=== PATIENT | female | born 1945 | race Caucasian/White ===

== ENCOUNTER 2019-07-12 09:19 | Inpatient (IN) ==
--- NOTE | 2019-06-04 15:01 | PAT Medication Instructions ---
Medication Instructions Date of Service June 04, 2019 Home Medications albuterol sulfate 0.63 mg INHALATION QID PRN albuterol sulfate [ProAir HFA] 2 puff INHALATION QID PRN coQ10 (ubiquinol) 100 mg PO QAM cyanocobalamin (vitamin B-12) 1,000 mcg PO QAM diphenhydramine HCl [Benadryl] 25 mg PO Q6H PRN epinephrine [EpiPen] 0.3 mg IM Q3H PRN furosemide 20 mg PO DAILY PRN glucos sul 4LKj-rwy-upidw-C-Mn [Glucosamine Chondroitin] 1 cap PO BID lactobacillus combination no.4 [Probiotic] 3,000 mmu cells PO QAM loratadine [Claritin] 10 mg PO HS oxybutynin chloride 5 mg PO QAM rosuvastatin [Crestor] 10 mg PO HS turmeric root extract 1,000 mg PO BID vit C,I-Vp-rpqzr-lutein-zeaxan [PreserVision AREDS-2] 1 tab PO BID Continue as directed epinephrine [EpiPen] 0.3 mg IM Q3H PRN (if needed) STOP taking 2 weeks before surgery (or as soon as possible if surgery is within 2 weeks) coQ10 (ubiquinol) 100 mg PO QAM glucos sul 1BLt-gwq-wsvbk-C-Mn [Glucosamine Chondroitin] 1 cap PO BID turmeric root extract 1,000 mg PO BID vit C,Y-Md-nfnfy-lutein-zeaxan [PreserVision AREDS-2] 1 tab PO BID DO NOT take the morning of surgery cyanocobalamin (vitamin B-12) 1,000 mcg PO QAM diphenhydramine HCl [Benadryl] 25 mg PO Q6H PRN furosemide 20 mg PO DAILY PRN lactobacillus combination no.4 [Probiotic] 3,000 mmu cells PO QAM oxybutynin chloride 5 mg PO QAM Take morning of surgery With a small sip of water, OTHERWISE NOTHING TO EAT OR DRINK AFTER MIDNIGHT: albuterol sulfate 0.63 mg INHALATION QID PRN (use if needed; please bring with you to hospital day of surgery if possible) albuterol sulfate [ProAir HFA] 2 puff INHALATION QID PRN (if needed) Take evening before surgery albuterol sulfate 0.63 mg INHALATION QID PRN (if needed) albuterol sulfate [ProAir HFA] 2 puff INHALATION QID PRN (if needed) diphenhydramine HCl [Benadryl] 25 mg PO Q6H PRN (if needed) furosemide 20 mg PO DAILY PRN (if needed) loratadine [Claritin] 10 mg PO HS rosuvastatin [Crestor] 10 mg PO HS Other Notes If you have any questions please call us at [phone] or [phone] or [phone] or [phone]
--- NOTE | 2019-06-05 11:44 | Anesthesiology Consultation ---
Date of Service June 05, 2019 Assessment & Plan (1) Encounter for pre-operative examination: Chart Review Chart Review: Acceptable Risk for Surgery and Patient seen in Pre Admission Testing Teaching & Discussion Pre-Anesthesia Teaching/Discussion Notes: Instructed NPO after midnight before surgery,except medications with 15 cc of water. Medication instructions provided according to the PAT guidelines. History Surgery Operation Date: 07/12/19 11:10 Proposed Procedures p Bilateral Total Knee Arthroplasty - Oliver Butler, Height/Weight Height: 5 ft 6 in Weight: 85 kg Allergies Allergy/AdvReac Type Severity Reaction Status Date / Time amoxicillin Allergy Intermediate Rash Verified 06/05/19 10:17 latex Allergy Intermediate Facial Verified 06/05/19 12:06 redness perfume Allergy Intermediate Facial Verified 06/05/19 12:06 redness, headache, "brain fog" cephalexin [From Keflex] Allergy Unknown Unknown Verified 06/05/19 12:06 reaction erythromycin base AdvReac Intermediate GI upset Verified 06/05/19 12:06 minocycline [From Minocin] AdvReac Intermediate worsened Verified 06/05/19 12:06 symptoms nitrofurantoin AdvReac Intermediate worsened Verified 06/05/19 12:06 [From Macrodantin] symptoms sulfamethoxazole AdvReac Intermediate GI upset Verified 06/05/19 12:06 [From Bactrim] trimethoprim [From Bactrim] AdvReac Intermediate GI upset Verified 06/05/19 12:06 Medications Home Medications Medication Instructions Recorded Confirmed Last Taken albuterol sulfate 0.63 mg INHALATION QID PRN 05/28/19 06/05/19 Unknown albuterol sulfate [ProAir HFA] 2 puff INHALATION QID PRN 05/28/19 06/05/19 Unknown coQ10 (ubiquinol) 100 mg PO QAM 05/28/19 06/05/19 Unknown cyanocobalamin (vitamin B-12) 1,000 mcg PO QAM 05/28/19 06/05/19 Unknown diphenhydramine HCl [Benadryl] 25 mg PO Q6H PRN 05/28/19 06/05/19 Unknown epinephrine [EpiPen] 0.3 mg IM Q3H PRN 05/28/19 06/05/19 Unknown furosemide 20 mg PO DAILY PRN 05/28/19 06/05/19 Unknown glucos sul 0OJa-dol-hpbvu-C-Mn 1 cap PO BID 05/28/19 06/05/19 Unknown [Glucosamine Chondroitin] lactobacillus combination no.4 3,000 mmu cells PO QAM 05/28/19 06/05/19 Unknown [Probiotic] loratadine [Claritin] 10 mg PO HS 05/28/19 06/05/19 Unknown oxybutynin chloride 5 mg PO QAM 05/28/19 06/05/19 Unknown rosuvastatin [Crestor] 10 mg PO HS 05/28/19 06/05/19 Unknown turmeric root extract 1,000 mg PO BID 05/28/19 06/05/19 Unknown vit C,M-Yh-tlgty-lutein-zeaxan 1 tab PO BID 05/28/19 06/05/19 Unknown [PreserVision AREDS-2] Past Medical History Medical History Asthma rare inhaler use Hyperlipidemia Osteoarthritis Thyroid nodule X2 (benign) Urinary, incontinence, stress female on oxybutynin Exercise / Class Metabolic Activity II 4-5 Yardwork/Stairs/Walk up hill (one flight of stairs (no chest pain/no sob)) Past Family History Family History Father Family history of diabetes mellitus Past Surgical History Surgical History Hemangioma REMOVED FROM RT LEG ALONG WITH SKIN GRAFTING (AGE 15) History of bilateral tubal ligation History of cholecystectomy History of colonoscopy History of laparoscopy History of tooth extraction Past Anesthesia History No Hx of Anesthesia Complications and No Family Hx of Anesthesia Complications History of PONV No Hx of PONV and Hx of Motion Sickness Social History Smoking Status: Never smoker Do You Dip or Chew Tobacco: No Hx Alcohol Use: No Hx Substance Use: No substance use type: does not use Review of Systems Patient denies chest pain, shortness of breath, dyspnea on exertion, reflux, cough, wheezing, palpitations. Physical Exam Vital Signs VITALS BP 168/77 (recheck: 138/82 on right/manual) P 59 TEMP 97.8 SP02 95%RA RESP 16 PHYSICAL Full neck and c-spine range of motion. Full TMJ range of motion. TMD 3.5 finger breaths Mallampati Score 2 Dentition: partial on upper, several crowns, ? cap on molar Lungs: clear throughout to auscultation Cardiac: regular rate and rhythm, no murmurs noted Spine: normal Carotid arteries: negative bruit Extremities: no edema Testing Laboratory Results 06/05/19 12:05 06/05/19 12:05 PT 10.9 Seconds (9.0-12.0) 06/05/19 12:05 INR 1.1 (0.9-1.1) 06/05/19 12:05 APTT 26.7 Seconds (21.0-31.0) 06/05/19 12:05 Blood Type O Positive 06/05/19 12:05 Antibody Screen NEGATIVE 06/05/19 12:05 Electrocardiogram Date: 06/05/19 SB with first degree AVB at 59bpm. Otherwise "normal" ECG. Chest X-Ray Date: 06/05/19 Findings: + NAD
--- NOTE | 2019-06-05 12:48 | XRay Report ---
XR chest Pre-admission PA/Lat CLINICAL HISTORY: pat preoperative evaluation COMPARISON STUDY: No previous studies for comparison. FINDINGS: The bones soft tissues and hemidiaphragms are normal. The cardiomediastinal silhouette is n ormal. The lungs are clear. The pulmonary vasculature is normal. IMPRESSION: Negative chest. The above report was generated using voice recognition software. It may contain grammatical, syntax or spelling errors. Electronically signed by: Gaurav Robin M.D. 06/05/2019 12:46 PM
[2019-06-05 13:13] LABS: Basophils # (auto) 0.04 K/uL (0-0.2); Basophils % (auto) 0.8 %; Eosinophils # (auto) 0.28 K/uL (0-0.5); Eosinophils % (auto) 5.4 %; Hematocrit (blood only) 41.9 % (37-47); Immature Granulocytes # (auto) 0.01 K/uL (0.00-0.02); Immature Granulocytes % (auto) 0.2 %; Lymphocytes % (auto) 28.8 %; Mean Corpuscular Hemoglobin 31.4 pg (25-34); Mean Corpuscular Hgb Conc 33.4 g/dL (32-36); Mean Corpuscular Volume 93.9 fL (80-100); Mean Platelet Volume 11.2 fL (7.4-10.4); Monocytes # (auto) 0.41 K/uL (0.11-0.59); Monocytes % (auto) 7.9 %; Neutrophils # (auto) 2.96 K/uL (1.4-6.5); Neutrophils % (auto) 56.9 %; Platelet Count 230 K/uL (130-400); RDW Coefficient of Variation 12.8 % (11.5-14.5); RDW Standard Deviation 44.2 fL (36.4-46.3); Red Blood Count 4.46 M/uL (4.2-5.4)
[2019-06-05 13:27] LABS: BUN Creatinine Ratio 20.9 (10-20); Calcium 9.5 mg/dl (8.5-10.1); Creatinine Clr Calc Pharmacy 65.9 ml/min; Est GFR (African American) 82.3; Potassium 3.8 mmol/L (3.5-5.1)
[2019-06-05 13:32] LABS: INR 1.1 (0.9-1.1); Partial Thromboplastin Time 26.7 Seconds (21.0-31.0); Prothrombin Time 10.9 Seconds (9.0-12.0)
--- NOTE | 2019-07-11 16:03 | History & Physical Report ---
Date of Service July 11, 2019 Assessment & Plan (1) Osteoarthritis of knees, bilateral: We will proceed with bilateral total knee arthroplasties. Postoperatively she will be started on aspirin for DVT prophylaxis and kept overnight in the hospital for postoperative medical management. She plans to use home nursing upon discharge. Present on Admission?: Yes History of Present Illness Chief Complaint: Primary osteoarthritis of both knees Primary Care Provider: Sharon Dalton PA-C Marisela is a pleasant 74-year-old female who has been dealing with chronic increasing bilateral knee pain. X-rays and clinical examination have been diagnostic for primary osteoarthritis of both knees. After failing conservative treatment, she has elected proceed with bilateral total knee arthroplasties. Allergies Allergy/AdvReac Type Severity Reaction Status Date / Time amoxicillin Allergy Intermediate Rash Verified 06/05/19 10:17 latex Allergy Intermediate Facial Verified 06/05/19 12:06 redness perfume Allergy Intermediate Facial Verified 06/05/19 12:06 redness, headache, "brain fog" cephalexin [From Keflex] Allergy Unknown Unknown Verified 06/05/19 12:06 reaction erythromycin base AdvReac Intermediate GI upset Verified 06/05/19 12:06 minocycline [From Minocin] AdvReac Intermediate worsened Verified 06/05/19 12:06 symptoms nitrofurantoin AdvReac Intermediate worsened Verified 06/05/19 12:06 [From Macrodantin] symptoms sulfamethoxazole AdvReac Intermediate GI upset Verified 06/05/19 12:06 [From Bactrim] trimethoprim [From Bactrim] AdvReac Intermediate GI upset Verified 06/05/19 12:06 Home Medications Home Medications Medication Instructions Recorded Confirmed Type albuterol sulfate 0.63 mg INHALATION QID PRN 05/28/19 06/05/19 History albuterol sulfate [ProAir HFA] 2 puff INHALATION QID PRN 05/28/19 06/05/19 History coQ10 (ubiquinol) 100 mg PO QAM 05/28/19 06/05/19 History cyanocobalamin (vitamin B-12) 1,000 mcg PO QAM 05/28/19 06/05/19 History diphenhydramine HCl [Benadryl] 25 mg PO Q6H PRN 05/28/19 06/05/19 History epinephrine [EpiPen] 0.3 mg IM Q3H PRN 05/28/19 06/05/19 History furosemide 20 mg PO DAILY PRN 05/28/19 06/05/19 History glucos sul 0ABd-vzv-webqu-C-Mn 1 cap PO BID 05/28/19 06/05/19 History [Glucosamine Chondroitin] lactobacillus combination no.4 3,000 mmu cells PO QAM 05/28/19 06/05/19 History [Probiotic] loratadine [Claritin] 10 mg PO HS 05/28/19 06/05/19 History oxybutynin chloride 5 mg PO QAM 05/28/19 06/05/19 History rosuvastatin [Crestor] 10 mg PO HS 05/28/19 06/05/19 History turmeric root extract 1,000 mg PO BID 05/28/19 06/05/19 History vit C,E-Yz-jrsle-lutein-zeaxan 1 tab PO BID 05/28/19 06/05/19 History [PreserVision AREDS-2] Past Med/Surg History Medical History Asthma rare inhaler use Hyperlipidemia Osteoarthritis Thyroid nodule X2 (benign) Urinary, incontinence, stress female on oxybutynin Surgical History Hemangioma REMOVED FROM RT LEG ALONG WITH SKIN GRAFTING (AGE 15) History of bilateral tubal ligation History of cholecystectomy History of colonoscopy History of laparoscopy History of tooth extraction Family History Father Family history of diabetes mellitus Social History Preferred Language: Bangladeshi Communication Ability: Effective Under Cutting Machine Operator Required: No Beliefs That Will Affect Care: None Current Living Situation: Spouse Feels Safe at Home: Yes Safety Concerns: Feels Safe At This Time Smoking Status: Never smoker Do You Dip or Chew Tobacco: No ; Second Hand Exposure: No ; Tobacco Cessation Education Requested by Patient: No Hx Alcohol Use: No Hx Substance Use: No Review of Systems All systems reviewed & are unremarkable except as noted in HPI & below Physical Exam Constitutional: WD/WN, vitals as above Eyes: PERRL, conjunctivae normal, anicteric sclerae ENMT: external ear and nose normal, oropharynx normal Neck: trachea midline, no thyromegaly Respiratory: normal respiratory effort Cardiovascular: RRR, no murmur, no edema Gastrointestinal (Abdomen): normal bowel sounds, soft, nontender, no hepatosplenomegaly Musculoskeletal: On physical examination of both knees there is a trace effusion. There is near full range of motion and no evidence of instability. There is significant tenderness palpation along the medial and lateral joint lines and over the distal femoral condyles. Psychiatric: A+Ox3, euthymic affect Results & Data Diagnostic Findings Radiographs of both knees are similar. There is advanced osteoarthritis with joint space narrowing osteophyte formation and jbhz-sd-ionh articulation.
[~2019-07-12 09:19] MED LIST: ACETAMINOPHEN 500 MG TAB PO SCH; BUPIVACAINE 0.5 % 5 MG/1 ML PF 10ML VIAL ONE; CEFAZOLIN 2000MG 2,000 MG/15 ML SYR IV SCH; EPINEPHrine INJ 1 MG/ML AMP ONE; FAMOTIDINE 20 MG TAB PO SCH; GABAPENTIN 300 MG CAP PO SCH; LR 500ML BOLUS, THEN 15ML/HR IV SCH; ROPIVACAINE 0.5% 5 MG/ML 30 ML VIAL ONE; ROPIVACAINE 0.5% HCL/PF 150 MG, BUPIVACAINE 0.5% MPF 30 ML, EPINEPHrine 30MG/30ML (OR U... INFIL SCH; TRANEXAMIC ACID 1,000 MG **IV Intra-op IV SCH; TRANEXAMIC ACID 1,000 MG **IV Pre-op IV SCH; dexAMETHasone 4 MG TAB PO SCH
[2019-07-12] MEDS ORDERED: LIDOCAINE HCL 2% 2 ML VIAL/AMP(20MG/ML) INFIL ONE (09:38)
[2019-07-12] MEDS ORDERED: fentaNYL citrate 100 MCG/2 ML VIAL ONE (09:38)
[2019-07-12] MEDS ORDERED: MIDAZOLAM HCL 1 MG/ML 2ML VIAL ONE ×2 (09:38→12:22)
[2019-07-12] MEDS ORDERED: PROPOFOL IV EMULSION 10 MG/ML 20 ML VIAL IV ONE (09:38)
--- NOTE | 2019-07-12 09:50 | History & Physical Bridge Note ---
Date of Service July 12, 2019 History & Physical Bridge Note I have examined the patient, reviewed the History & Physical and in the interval since the performance of the History & Physical I have noted the following changes of clinical significance: no changes noted
[2019-07-12] MEDS ORDERED: MEPERIDINE HCL 25 MG/ML CARP IV PRN (10:16)
[2019-07-12] MEDS ORDERED: LABETALOL HCL IV 5 MG/ML 20ML IV PRN (10:16)
[2019-07-12] MEDS ORDERED: ONDANSETRON INJ 2 MG/ML 2 ML VIAL IV PRN ×2 (10:16→15:30)
[2019-07-12] MEDS ORDERED: fentaNYL citrate 100 MCG/2 ML VIAL IV PRN (10:16)
[2019-07-12] MEDS ORDERED: PHENYLEPHRINE 100MCG/ML 5ML SYR IV PRN (10:16)
[2019-07-12] MEDS ORDERED: HYDROmorphone INJ 1 MG/ML SYRINGE IV PRN (10:16)
[2019-07-12] MEDS ORDERED: ATROPINE SULFATE 0.1 MG/ML 10ML SYR IV PRN (10:16)
[2019-07-12] MEDS ORDERED: ePHEDrine sulfate 50 MG/ML AMP IV PRN (10:16)
[2019-07-12] MEDS ORDERED: ROPIVACAINE 0.5% 5 MG/ML 30 ML VIAL ONE (10:21)
[2019-07-12] MEDS ORDERED: ePHEDrine sulfate 50 MG/ML SYR ONE (13:56)
--- NOTE | 2019-07-12 14:30 | Operative Report ---
PG Post Operative Report Pre & Post Diagnosis Operation Date: 07/12/19 11:50 Pre-Op Diagnosis: Bilateral Knee Advanced Osteoarthritis Post-Op Diagnosis: Bilateral Knee Advanced Osteoarthritis I identified the patient and participated in the time-out.: Yes Procedure Operation Date: 07/12/19 11:50 Actual Procedures p Bilateral Total Knee Arthroplasty(Bilateral) - Oliver Butler DO Surgeon Oliver Butler, Lacquer Pin Press Operator Oliver Garcia PAC Estimated Blood Loss 20 Findings Consistent with Post-Op Diagnosis Specimens Right and left femoral and tibial bone Complications none Disposition Disposition: Recovery Room Indications Miriam is a pleasant 74-year-old female who presented my office with chronic increasing bilateral knee pain. X-rays and clinical examination were diagnostic for bilateral osteoarthritis of the knees. After failing conservative marvin atment, she elected proceed with bilateral total knee arthroplasties. Description of Procedure The patient arrived [facility] for the above procedure. They were seen in the preoperative holding area and the operative extremities were identified and signed. They were given a preoperative antibiotic, a spinal anesthetic and an adductor nerve block. There were taken back to the operating room and laid on the table in supine position. There were given basic sedation. The knees were then prepped and draped in sterile fashion. A timeout was done, and the patient and the operative extremities were properly identified. Right Knee Implants used: I used a Biomet Vanguard total knee arthroplasty system with a size 65 femur, 67 tibia, 31 patella, and a size 10 PS plus polyethylene bearing. All components were cemented in place with Palacos G cement. A midline incision was made directly over the patella. Dissection was taken down to the extensor mechanism. A subvastus arthrotomy was used. The medial retinaculum was released and the fat pad was mostly left intact. The knee was flexed and the ACL, PCL, and meniscus were removed. A drill was sent down the center of the femoral canal followed by an intramedullary jenniffer. Off that jenniffer a distal femoral cutting block was placed. 9 mm was resected off the distal femur at 5 of valgus. A posterior referencing AP sizing guide was then placed on the distal femur. The femur measured to be a size 65. 2 drill holes were placed in 3 of external rotation. A 4-in-1 cutting block was then impacted into place. Anterior posterior and chamfer cuts were then made. The posterior stabilizing box guide was then impacted into place and the box was resected for the posterior stabilizing component. The proximal tibia was then exposed. A drill was sent down the center of the tibial canal followed by an intramedullary jenniffer. Off that jneniffer a proximal tibial resection guide was placed. The proximal tibia was then resected. The tibia measured to be a size 37. The tibial plate was then placed in the appropriate rotation and the tibia was punched. The posterior aspect of the knee was then opened up and any additional meniscus fragments and osteophytes were removed. Trial components were then placed. I used a size 10 PS plus polyethylene insert. The knee was brought through a full range of motion and felt to be stable. The patella was then everted and 8 mm was resected off the posterior aspect of the patella. The patella measured to be a size 31. 3 peg holes were then drilled. A trial patella was placed. The knee was once again brought through a full range of motion and felt to be stable. Trial components were then removed. The surrounding soft tissues were injected with 50 cc of an orthopedic pain control cocktail. All components were then cemented into place with Palacos G cement. The final polyethylene insert was then snapped into place and the anterior bar was locked. Once cement was dry the tourniquet was deflated. Hemostasis was obtained. A dilute betadyne lavage was then done for 3 minutes. The joint was then irrigated with normal saline solution. The subvastus arthrotomy was then closed with #1 Vicryl suture. The skin was closed with 2-0 Vicryl, 3-0V lock suture, and rosa elena. A soft compressive dressing was placed. Left Knee Implants used: I used a Biomet Zane Prepguard total knee arthroplasty system with a size 65 femur, 67 tibia, 31 patella, and a size 10 PS plus polyethylene bearing. All components were cemented in place with Palacos G cement. A midline incision was made directly over the patella. Dissection was taken down to the extensor mechanism. A subvastus arthrotomy was used. The medial retinaculum was released and the fat pad was mostly left intact. The knee was flexed and the ACL, PCL, and meniscus were removed. A drill was sent down the center of the femoral canal followed by an intramedullary jenniffer. Off that jenniffer a distal femoral cutting block was placed. 9 mm was resected off the distal femur at 5 of valgus. A posterior referencing AP sizing guide was then placed on the distal femur. The femur measured to be a size 65. 2 drill holes were placed in 3 of external rotation. A 4-in-1 cutting block was then impacted into place. Anterior posterior and chamfer cuts were then made. The posterior stabilizing box guide was then impacted into place and the box was resected for the posterior stabilizing component. The proximal tibia was then exposed. A drill was sent down the center of the tibial canal followed by an intramedullary jenniffer. Off that jenniffer a proximal tibial resection guide was placed. The proximal tibia was then resected. The tibia measured to be a size 67. The tibial plate was then placed in the appropriate rotation and the tibia was punched. The posterior aspect of the knee was then opened up and any additional meniscus fragments and osteophytes were removed. Trial components were then placed. I used a size 10 PS plus polyethylene insert. The knee was brought through a full range of motion and felt to be stable. The patella was then everted and 8 mm was resected off the posterior aspect of the patella. The patella measured to be a size 31. 3 peg holes were then drilled. A trial patella was placed. The knee was once again brought through a full range of motion and felt to be stable. Trial components were then removed. The surrounding soft tissues were injected with 50 cc of an orthopedic pain control cocktail. All components were then cemented into place with Palacos G cement. The final polyethylene insert was then snapped into place and the anterior bar was locked. Once cement was dry the tourniquet was deflated. Hemostasis was obtained. A dilute betadyne lavage was then done for 3 minutes. The joint was then irrigated with normal saline solution. The subvastus arthrotomy was then closed with #1 Vicryl suture. The skin was closed with 2-0 Vicryl, 3-0V lock suture, and rosa elena. A soft compressive dressing was placed. The patient was then transferred to a hospital bed and taken to the postanesthesia care unit in stable condition. They tolerated the procedure well. I attest to the content of the Intraoperative Record and any orders documented therein. Any exceptions are noted below.
[2019-07-12] MEDS ORDERED: ONDANSETRON INJ 2 MG/ML 2 ML VIAL ONE (14:34)
--- NOTE | 2019-07-12 15:00 | XRay Report ---
XR knee LT 1 or 2V routine CLINICAL HISTORY: 74 years-old Female presenting with Surgical Post Op. TECHNIQUE: Frontal and crosstable lateral views of the left knee were obtained. COMPARISON: 06/05/2019. FINDINGS: There has been interval total left knee arthroplasty with patellar resurfacing. Expected intra-articu lar and soft tissue emphysema. Overlying skin rosa elena. No malalignment. No periprosthetic fracture or lucency. IMPRESSION: Expected postsurgical appearance status post total left knee arthroplasty. ACT 112: Negative or not required by law. Electronically signed by: Sandro Ro M.D. 07/12/2019 2:58 PM
--- NOTE | 2019-07-12 15:02 | XRay Report ---
XR knee RT 1 or 2V routine CLINICAL HISTORY: Surgical Post Op postoperative evaluation COMPARISON: None. DISCUSSION: Anatomic alignment posttotal right knee arthroplasty. Could contact between prosthetic an d underlying bone. Expected postoperative soft tissue change. IMPRESSION: Anatomic alignment posttotal right knee arthroplasty. ACT 112: Negative or not required by law. The above report was generated using voice recognition software. It may contain grammatical, syntax or spelling errors. Electronically signed by: Gaurav Robin M.D. 07/12/2019 3:00 PM
--- NOTE | 2019-07-12 15:10 | Anesthesiology Progress Note ---
Date of Service July 12, 2019 Anesthesia Post Procedure Vital Signs Vital Signs: Temp Pulse Pulse Resp BP Pulse Ox 07/12/19 15:10 36.9 C 68 14 133/59 L 98 07/12/19 15:00 72 14 128/58 L 98 07/12/19 14:50 72 14 130/61 96 07/12/19 14:44 37 C 80 14 133/61 96 07/12/19 10:04 36.7 C 66 20 169/91 H 95 Transfer of Care Handoff Completed per policy Notes Mental Status: alert / awake / arousable Patient Amnestic to Procedure: Yes Nausea / Vomiting: adequately controlled Pain: adequately controlled Airway Patency, RR, SpO2: stable & adequate BP & HR: stable & adequate Hydration State: stable & adequate Neuraxial Anesthesia: was administered and sensory block is resolving Anesthetic Complications: no major complications apparent and Pt Satisfied with anesthetic care
[2019-07-12] MEDS ORDERED: FUROSEMIDE 20 MG TAB PO PRN (15:30)
[2019-07-12] MEDS ORDERED: METOCLOPRAMIDE HCL INJ 5 MG/ML 2 ML VIAL IV PRN (15:30)
[2019-07-12] MEDS ORDERED: SODIUM CHLORIDE 0.9% 1000ML 1,000 ML IV SCH (15:30)
[2019-07-12] MEDS ORDERED: bisacodyL 10 MG SUPP PR PRN (15:30)
[2019-07-12] MEDS ORDERED: NALOXONE HCL 0.4 MG/1 ML VIAL/CARP IV PRN (15:30)
[2019-07-12] MEDS ORDERED: HYDROmorphone INJ 0.5 MG/0.5 ML SYR IV PRN (15:30)
[2019-07-12] MEDS ORDERED: MAGNESIUM HYDROXIDE SUSP 30 ML UDC PO PRN (15:30)
[2019-07-12] MEDS ORDERED: ALBUTEROL HFA 8 GM INHALER INH PRN (15:42)
[2019-07-12] MEDS ORDERED: ALBUTEROL 0.083% NEBU SOLN 3 ML VIAL INH PRN (15:51)
[2019-07-12] MEDS: KETOROLAC TROMETHAMINE 15 MG/ML VIAL IV SCH ×2 (17:46→23:02)
[2019-07-12] MEDS: ASPIRIN 81 MG ECTAB PO SCH (20:50)
[2019-07-12] MEDS: DOCUSATE SODIUM 100 MG CAP PO SCH (20:50)
[2019-07-12] MEDS: CEFAZOLIN 2000MG 2,000 MG/15 ML SYR IV SCH (20:56)
[2019-07-12] MEDS ORDERED: SENNA 8.6 MG TAB PO SCH (21:00)
[2019-07-12] MEDS ORDERED: ROSUVASTATIN CALCIUM 10 MG TAB PO SCH (21:00)
[2019-07-12] MEDS ORDERED: LORATADINE 10 MG TAB PO SCH (21:00)
[2019-07-12] MEDS: ACETAMINOPHEN 500 MG TAB PO SCH (21:05)
[2019-07-13] MEDS: OXYCODONE HCL IR 5 MG TAB (IMMEDIATE RELEASE) PO PRN ×2 (00:05→09:02)
[2019-07-13] MEDS: CEFAZOLIN 2000MG 2,000 MG/15 ML SYR IV SCH (04:25)
[2019-07-13 05:29] LABS: Hematocrit (blood only) 34.2 % (37-47); Hemoglobin 11.4 g/dL (12.0-16.0); Mean Corpuscular Hemoglobin 30.8 pg (25-34); Mean Corpuscular Hgb Conc 33.3 g/dL (32-36); Mean Corpuscular Volume 92.4 fL (80-100); Mean Platelet Volume 11.1 fL (7.4-10.4); Platelet Count 210 K/uL (130-400); RDW Coefficient of Variation 12.5 % (11.5-14.5); RDW Standard Deviation 42.5 fL (36.4-46.3); White Blood Count 14.32 K/uL (4.8-10.8)
[2019-07-13] MEDS: ACETAMINOPHEN 500 MG TAB PO SCH (05:33)
[2019-07-13] MEDS: KETOROLAC TROMETHAMINE 15 MG/ML VIAL IV SCH ×2 (05:33→11:38)
[2019-07-13 05:46] LABS: Calcium 8.4 mg/dl (8.5-10.1); Creatinine Clr Calc Pharmacy 56.7 ml/min; Est GFR (African American) 68.8; Est GFR (Non-African American) 59.3; Potassium 4.2 mmol/L (3.5-5.1)
[2019-07-13] MEDS ORDERED: dexAMETHasone 4 MG TAB PO SCH (08:00)
--- NOTE | 2019-07-13 08:42 | Orthopedic Progress Note ---
Date of Service July 13, 2019 Assessment & Plan (1) History of bilateral knee replacement: Overall she is doing very well. She is not having much pain in the knees at this time. She understands that she will be having more pain later today and into tomorrow. She will be seen by physical therapy this morning for ambulation and range of motion exercises. She can be discharged home later this afternoon if she feels comfortable. Otherwise, she can stay until tomorrow. She is on aspirin for DVT prophylaxis. Present on Admission?: Yes Misty Pineda was seen and examined at bedside this morning. Overall she is doing very well. She is already been ambulating around the nurses station. Her pain is controlled. She has no complaints. Physical Exam Musculoskeletal: On physical examination of both knees, the dressings are clean and dry. She sitting in a chair with her knees flexed at 90 degrees. She is neurovascular intact. Results & Data Vital Signs (Past 12 Hours) Vital Signs Temp Pulse Resp BP Pulse Ox 07/13/19 06:28 36.5 C 59 L 15 125/61 94 07/13/19 03:26 36.5 C 54 L 14 114/59 L 93 07/12/19 23:02 36.6 C 63 16 121/58 L 91 Laboratory Results H & H 06/05/19 07/13/19 Range/Units 12:05 04:52 Hgb 14.0 11.4 L (12.0-16.0) g/dL Hct 41.9 34.2 L (37-47) % Coagulation 06/05/19 Range/Units 12:05 INR 1.1 (0.9-1.1) Diagnostic Findings Postoperative x-rays of both knees show the prosthesis to be in anatomic alignment without any evidence of fracture, dislocation, or loosening. PG Care Time/CCT Total # of Minutes Spent Total Time Spent with Patient: Total time spent is greater than 50% in coordination of care (as documented) at patient's floor/unit and/or counseling patient: Coding Level of Care Code None Diagnoses History of bilateral knee replacement Z96.653
[2019-07-13] MEDS: DOCUSATE SODIUM 100 MG CAP PO SCH (08:59)
[2019-07-13] MEDS: ASPIRIN 81 MG ECTAB PO SCH (08:59)
[2019-07-13] MEDS ORDERED: OXYBUTYNIN CHLORIDE 5 MG TAB PO SCH (09:00)
[2019-07-13] MEDS ORDERED: MULTIVITAMIN TAB PO SCH (09:00)
--- NOTE | 2019-07-13 13:33 | Anesthesiology Progress Note ---
Date of Service July 13, 2019 Anesthesia Post Procedure Vital Signs Vital Signs: Temp Pulse Pulse Resp BP Pulse Ox 07/13/19 11:27 36.4 C L 57 L 18 124/69 96 07/13/19 11:14 36.5 C 59 L 15 125/61 95 07/13/19 09:45 95 07/13/19 06:28 36.5 C 59 L 15 125/61 94 07/13/19 03:26 36.5 C 54 L 14 114/59 L 93 07/12/19 23:02 36.6 C 63 16 121/58 L 91 07/12/19 18:35 36.6 C 70 16 161/69 H 95 07/12/19 17:37 36.4 C L 74 16 139/69 94 07/12/19 16:30 36.4 C L 67 18 123/65 93 07/12/19 16:02 36.8 C 69 16 132/64 95 07/12/19 15:32 36.6 C 67 20 130/66 96 07/12/19 15:10 36.9 C 68 14 133/59 L 98 07/12/19 15:00 72 14 128/58 L 98 07/12/19 14:50 72 14 130/61 96 07/12/19 14:44 37 C 80 14 133/61 96 Notes Mental Status: alert / awake / arousable Nausea / Vomiting: adequately controlled Pain: adequately controlled Airway Patency, RR, SpO2: stable & adequate BP & HR: stable & adequate Hydration State: stable & adequate Neuraxial Anesthesia: was administered and sensory block resolved Anesthetic Complications: no major complications apparent and Pt Satisfied with anesthetic care
--- NOTE | 2019-07-14 08:20 | Discharge Summary ---
Date of Service July 14, 2019 Admission HPI Per Admitting Provider Marisela is a pleasant 74-year-old female who has been dealing with chronic increasing bilateral knee pain. X-rays and clinical examination have been diagnostic for primary osteoarthritis of both knees. After failing conservative treatment, she has elected proceed with bilateral total knee arthroplasties. Principal Diagnosis Bilateral total knee arthroplasties Discharge Data Allergies Allergy/AdvReac Type Severity Reaction Status Date / Time amoxicillin Allergy Intermediate Rash Verified 07/12/19 09:50 latex Allergy Intermediate Facial Verified 07/12/19 09:50 redness perfume Allergy Intermediate Facial Verified 07/12/19 09:50 redness, headache, "brain fog" cephalexin [From Keflex] Allergy Unknown Unknown Verified 07/12/19 09:50 reaction erythromycin base AdvReac Intermediate GI upset Verified 07/12/19 09:50 minocycline [From Minocin] AdvReac Intermediate worsened Verified 07/12/19 09:50 symptoms nitrofurantoin AdvReac Intermediate worsened Verified 07/12/19 09:50 [From Macrodantin] symptoms sulfamethoxazole AdvReac Intermediate GI upset Verified 07/12/19 09:50 [From Bactrim] trimethoprim [From Bactrim] AdvReac Intermediate GI upset Verified 07/12/19 09:50 Consultations 07/12/19 15:30 Consult Case Management - Discharge Planning Routine Procedures Performed Operation Date: 07/12/19 11:50 Actual Procedures p Bilateral Total Knee Arthroplasty(Bilateral) - Oliver Butler DO Ordered Studies 07/12/19 05:00 US - OR guided needle placemen Urgent Hospital Course (1) History of bilateral knee replacement: On July 12, 2019 Miriam arrived at [facility] and underwent bilateral total knee arthroplasties without complication. She had a spinal anesthetic. Postoperatively she was started on aspirin for DVT prophylaxis and discharged to general orthopedic floors. Her hospital course was uneventful. On postop day #1 her H&H was stable and her pain was well controlled. She was able to participate well with physical therapy doing ambulation and range of motion exercises. She was then discharged home. She will follow-up with orthopedics in 2 weeks. Total Time Total Time Spent Total Time Spent (In Minutes): 20 Discharge Plan Discharge Items Patient Disposition: Home - Home Health Services Reason For Visit: BILATERAL KNEE DEGENERATIVE JOINT DISEASE Discharge Diagnosis: Bilateral total knee arthroplasty Activity: As commented below Non-emergency contact: Surgeon Call non-emergency contact if: your wound has increased redness and your wound has increased drainage Follow-up/Referrals: Sharon Dalton PA-C [Primary Care Provider] - Diet: Regular Addtl Attending Provider Instructions: Activity and Therapy Recommendations: * If you are using [facility] then therapy will be provided at your home until they feel you have accomplished all of your goals. * If you are using [facility] then Physical Therapy will be provided until they feel you are ready to start Outpatient Physical Therapy. * If you are not using home therapy then Outpatient Physical Therapy should start about 3-5 days from your day of surgery. Therapy will last about 6-10 weeks * It is important not to put a pillow under your knee when you are relaxing or sleeping. It is just as important to make sure you are getting your knee perfectly straight as it is to regain your knee bend. * You were shown a series of exercises in the hospital. Do these exercises three times each day including the exercises you were shown in physical therapy. * Get up and walk several times each day. For the first four weeks, try not to stand or walk for more than one hour at a time. If you do stand or walk for more than one hour, you will not hurt anything, but your leg will likely swell. * As you feel comfortable, you may change from the walker or crutches to a cane and then to independent walking. Medications: * Narcotic You will likely be sent home from the hospital with a prescription for the narcotic pain medication that worked best throughout your stay. * Aspirin Most patients will be required to take Aspirin 81mg twice a day for 6 weeks after surgery. This is obtained [id number] and a prescription is not necessary. * Other medications may be prescribed for specific circumstances. If you have any questions, please call the office at . * Resume previous home medications unless otherwise instructed TEDs/Elastic Stockings: The white elastic stockings help limit swelling and prevent blood clots from forming in your legs.~ The more you wear them, the more they work. Wear them for six weeks. Dressing Care: If the incision is not draining then you may leave the rosa elena open to air. If there is a little bit of drainage or if the rosa elena are getting stuck on your clothing then cover the incision with a dry dressing. The rosa elena will be removed at your 2 week follow-up appointment. Showering: You may shower 5 days from the day of surgery. Let the soapy shower water run over the rosa elena and pat them dry. Do not scrub or soak the incision. Things To Watch For: * Drainage from the incision site that occurs more than one week after your surgery. * Increased redness at the incision site. * Fever above 102 degrees Fahrenheit. * Unusual chest pain or shortness of breath. * Call [facility] at with any of the above problems Follow-Up Visit: Follow-up with Dr. Butler 2-3 weeks after your day of surgery. An appointment was probably scheduled when you signed-up for surgery in the office. If you have any questions call Office Instructions: More detailed instructions as well as Frequently Asked Questions were provided in a folder by our office when you signed-up for surgery. Please review these instructions when you get home. If you have any further questions or concerns, please feel free to call the office at [phone] Pending Studies at Discharge: No Stand-Alone Forms: My [facility], Opioid Pain Management, Smoking Cessation Medications and DC Order Prescriptions: New oxycodone 5 mg Tablet 5 mg PO Q4H PRN (Reason: pain) Qty: 30 RF: 0 aspirin [Ecotrin Low Strength] 81 mg Tablet,Delayed Release (Dr/Ec) 81 mg PO BID 42 Days Qty: 0 RF: 0 Continued albuterol sulfate 0.63 mg/3 mL Solution For Nebulization 0.63 mg INHALATION QID PRN (Reason: SHORT OF BREATH) RF: 0 cyanocobalamin (vitamin B-12) 1,000 mcg Tablet 1,000 mcg PO QAM RF: 0 diphenhydramine HCl [Benadryl] 25 mg Capsule 25 mg PO Q6H PRN (Reason: ALLERGY RELIEF) RF: 0 furosemide 20 mg Tablet 20 mg PO DAILY PRN (Reason: LEG SWELLING) RF: 0 epinephrine [EpiPen] 0.3 mg/0.3 mL Auto-Injector 0.3 mg IM Q3H PRN (Reason: ALLERGY REACTION) RF: 0 albuterol sulfate [ProAir HFA] 90 mcg/actuation Hfa Aerosol Inhaler 2 puff INHALATION QID PRN (Reason: SHORT OF BREATH) RF: 0 oxybutynin chloride 5 mg Tablet 5 mg PO QAM RF: 0 loratadine [Claritin] 10 mg Tablet 10 mg PO HS RF: 0 rosuvastatin [Crestor] 10 mg Tablet 10 mg PO HS RF: 0 turmeric root extract 500 mg Capsule 1,000 mg PO BID RF: 0 coQ10 (ubiquinol) 100 mg Capsule 100 mg PO QAM RF: 0 Probiotic 3 billion cell Capsule 3,000 mmu cells PO QAM RF: 0 PreserVision AREDS-2 [id number] [id number] Capsule 1 tab PO BID RF: 0 Glucosamine Chondroitin 550-30-1 mg Capsule 1 cap PO BID RF: 0 Discharge Orders: Discharge Order (Routine); Ordered 07/13/19 Ordered By: Oliver Kumari/Other Patient Handouts: Surgery Prevent DVT After, ED Stockings [place] Admission Data Admit Date/Time: 07/12/19 14:46 Attending Provider: Oliver Butler Admit Provider: Oliver Butler Primary Care Provider: Sharon Dalton Other Providers: [facility],Home [facility] Other Interventions: Discharge Summary Assessment (RN) Last Done: 07/13/19 11:14 DC Date/Time DO NOT enter until pt leaves facility: 07/13/19 13:11 Coding Level of Care Code D/C Day Management <30 mins Diagnoses History of bilateral knee replacement Z96.653
== END 2019-07-13 13:11 | disposition home health service (06) | DRG 462 ==
LOC: ASU 09:19 → 3E 14:46 → OBSVTOIN 14:46 → INTOOBSV 14:46